=== PATIENT | female | born 1970 | race Caucasian/White ===

== ENCOUNTER 2017-02-25 09:05 | Emergency (ER) | payer BC ==
--- NOTE | 2017-02-25 09:59 | ED ---
Abdominal Pain/Female - HPI Summary HPI Summary: Patient presents to the ED 11 days s/p RY5 gastric bypass from [facility] (Dr. Cook) with a concern for constipation d/t no BM since the surgery. She was on liquids with bowel cleanse prior to the surgery. Has been on liquids x 7 days with introduction of small amounts of food x 4 days. She notes to 1 day history of abdominal pain 3 days ago, but denies any currently. Denies N/V. Denies recent illness. Denies fevers, sweats, chills, diaphoresis. She has been feeling otherwise well, she is only concerned with not having a BM. - History of Current Complaint Chief Complaint: EDAbdPain Stated Complaint: CONSITIPATION Time Seen by Provider: 02/25/17 09:30 Hx Obtained From: Patient Hx Last Menstrual Period: 04/28/14 ?: No Onset/Duration: Gradual Onset Timing: Constant Severity Initially: Mild Severity Currently: Mild Pain Intensity: 0 Pain Scale Used: 0-10 Numeric - Risk Factors Ectopic Risk Factor: Negative Ovarian Torsion Risk Factor: Negative Allergies/Adverse Reactions: Allergies Allergy/AdvReac Type Severity Reaction Status Date / Time No Known Allergies Allergy Verified 02/25/17 09:08 PMH/Surg Hx/FS Hx/Imm Hx Previously Healthy: Yes Cardiovascular History: Reports: Hx Hypertension Sensory History: Reports: Hx Contacts or Glasses Opthamlomology History: Reports: Hx Contacts or Glasses Psychiatric History: Denies: Hx of Violent Episodes Against Others - Immunization History Hx Pertussis Vaccination: No Immunizations Up to Date: Unable to Obtain/Confirm Infectious Disease History: No Infectious Disease History: Denies: Traveled Outside the [place] in Last 30 Days - Social History Occupation: Employed Full-time Lives: With Family Alcohol Use: Rare Hx Substance Use: No Substance Use Type: Reports: None Hx Tobacco Use: Yes Smoking Status (MU): Heavy Every Day Tobacco Smoker Type: Cigarettes Amount Used/How Often: 1 pack daily x 1 year Have You Smoked in the Last Year: Yes Review of Systems Constitutional: Negative Negative: Fever, Chills, Fatigue Eyes: Negative Cardiovascular: Negative Respiratory: Negative Positive: Other - constipation Genitourinary: Negative Positive: no symptoms reported, see HPI Musculoskeletal: Negative Skin: Negative Neurological: Negative All Other Systems Reviewed And Are Negative: Yes Physical Exam Triage Information Reviewed: Yes Vital Signs On Initial Exam: Initial Vitals Temp Pulse Resp BP Pulse Ox 97.2 F 107 20 154/117 98 02/25/17 09:08 02/25/17 09:08 02/25/17 09:08 02/25/17 09:08 02/25/17 09:08 Vital Signs Reviewed: Yes Appearance: Positive: Well-Appearing, Well-Nourished Skin: Positive: Warm, Skin Color Reflects Adequate Perfusion Head/Face: Positive: Normal Head/Face Inspection Eyes: Positive: EOMI, BRE, Conjunctiva Clear Neck: Positive: Supple, Nontender Respiratory/Lung Sounds: Positive: Clear to Auscultation, Breath Sounds Present Cardiovascular: Positive: RRR, Pulses are Symmetrical in both Upper and Lower Extremities Musculoskeletal: Positive: Strength/ROM Intact Neurological: Positive: Speech Normal Psychiatric: Positive: Normal, Affect/Mood Appropriate Diagnostics - Vital Signs Vital Signs Temp Pulse Resp BP Pulse Ox 02/25/17 09:08 97.2 F 107 20 154/117 98 - Laboratory Result Diagrams: 02/25/17 10:16 02/25/17 10:16 Lab Statement: Any lab studies that have been ordered have been reviewed, and results considered in the medical decision making process. Abdominal Pain Fem Course/Dx - Course Course Of Treatment: Patient evaluated for constipation. Abd xray shows no acute findings. Symptoms are consistent with normal bowel function after gastric bypass. She has been on clear liquids with recent introduction of solid foods to the diet 3 days ago. Labs obtained and WNL. Treatment options explained to patient. Patient understands the plan, voices no concerns at this time and understands the return precatuions given to them if they develop any worsening or changing symptoms. They are OK for discharge at this time. While BP was elevated on arrival, rechecked during stay and WNL. VS stable on discharge. Primary care follow up as agreed on discharge. She will follow up with her surgeon. - Diagnoses Provider Diagnoses: Constipation Discharge - Discharge Plan Condition: Stable Disposition: HOME Prescriptions: Cephalexin CAP* [Keflex CAP*] 500 mg PO QID #20 cap MDD 4 Patient Education Materials: Magnesium Hydroxide (By mouth), Constipation (ED) Referrals: Felicia Griffiths NP [Primary Care Provider] - Additional Instructions: Please call your doctor today or tomorrow for a follow up As discussed, nothing was found on the abdominal xray Please continue to drink water and take small amounts of the milk of magnesia. If you develop any abdominal pain, please return to the ED
[2017-02-25 10:31] LABS: ABS Basophils 0 10^3/ul (0-0.2); ABS Eosinophils 0.1 10^3/ul (0-0.6); ABS Lymphocytes 1.2 10^3/ul (1.0-4.8); ABS Monocytes 0.3 10^3/ul (0-0.8); ABS Neutrophils 3.9 10^3/ul (1.5-7.7); ABS Nucleated RBC 0 10^3/ul; Eosinophil % 2.6 % (0-6); Hematocrit 41 % (35-47); Hemoglobin 13.8 g/dl (12.0-16.0); Lymphocyte % 21.4 % (25-47); Mean Corpuscular HGB Conc 33 g/dl (31-36); Mean Corpuscular Hemoglobin 29 pg (27-31); Mean Corpuscular Volume 86 fL (80-97); Nucleated Red Blood Cells % 0.1; Red Cell Distribution Width 13 % (10.5-15); White Blood Count 5.6 10^3/ul (3.5-10.8)
--- NOTE | 2017-02-25 10:38 | RAD ---
INDICATION: Constipation. No bowel movement since gastric bypass February 14, 2017. COMPARISON: None TECHNIQUE: Supine and upright views of the abdomen were obtained. FINDINGS: The small bowel and colon appear nondistended. No free intraperitoneal air is seen. No grossly abnormal or pathologic appearing calcifications are noted. Visualized bones are within normal limits for the patient's age. IMPRESSION: Normal abdominal radiograph.
[2017-02-25 10:47] LABS: EGFR Non-African American 88.6 (>60)
[2017-02-25 10:54] VITALS: BP 150/95
[2017-02-25 11:03] LABS: Mean Platelet Volume 9 um3 (7.4-10.4); Platelet Count 265 10^3/ul (150-450)
[2017-02-25 11:34] LABS: Urine Appearance Cloudy; Urine Color Amber; Urine Ketones 2+ (Negative); Urine Urobilinogen Negative (Negative)
[2017-02-25 11:35] LABS: Urine Blood 2+ (Negative); Urine Protein 1+(30 mg/dL) (Negative)
== END 2017-02-25 11:20 | disposition home or self-care (01) ==
LOC: ED 09:05
DX: K59.00 Constipation, unspecified (principal); F17.210 Nicotine dependence, cigarettes, uncomplicated
CPT/HCPCS: 36415; 74020; 80053; 81003; 81015; 83605; 83690; 83735; 85025; 86140; 87086; 99282

== ENCOUNTER 2018-08-02 09:25 | Emergency (ER) | payer BC ==
[2018-08-02 09:54] VITALS: BP 109/73
--- NOTE | 2018-08-02 10:10 | UC ---
Throat Pain/Nasal Rajesh HPI - HPI Summary HPI Summary: 48-year-old female comes in with a chief complaint of sore throat. She's had some upper respiratory tract infection symptoms for the last 2 days. Overnight sore throat got worse she had some white spots on the back of her throat. Pain is worse when she swallows. She took some [id number] medicine which did help with the symptoms. No chills no fevers. No shortness of breath. No chest congestion. - History of Current Complaint Chief Complaint: UCGeneralIllness Stated Complaint: ST Time Seen by Provider: 08/02/18 10:04 Hx Last Menstrual Period: 04/28/14 Pain Intensity: 4 - Allergies/Home Medications Allergies/Adverse Reactions: Allergies Allergy/AdvReac Type Severity Reaction Status Date / Time amoxicillin Allergy Rash Verified 08/02/18 09:48 Home Medications: Home Medications Calcium Citrate TAB* [Citracal TAB*] 1,000 mg PO DAILY 08/02/18 [History Confirmed 08/02/18] Cholecalciferol TAB* [Vitamin D TAB*] 1,000 unit PO DAILY 08/02/18 [History Confirmed 08/02/18] Cyanocobalamin TAB* [Vitamin B12 TAB*] 1,000 mcg PO DAILY 08/02/18 [History Confirmed 08/02/18] DULoxetine DR CAP* [Cymbalta CAP*] 120 mg PO DAILY 08/02/18 [History Confirmed 08/02/18] Metoprolol Tartrate TAB* [Lopressor TAB*] 50 mg PO DAILY 08/02/18 [History Confirmed 08/02/18] Vitamin THERAPEUTIC TAB* [Theragran TAB*] 1 tab PO DAILY 08/02/18 [History Confirmed 08/02/18] PMH/Surg Hx/FS Hx/Imm Hx Previously Healthy: Yes Cardiovascular History: Hypertension - Surgical History Surgical History: Yes Surgery Procedure, Year, and Place: Gastric Bypass, 2017, [place] - Family History Known Family History: Positive: Non-Contributory - Social History Alcohol Use: Rare Substance Use Type: None Smoking Status (MU): Former Smoker Type: Cigarettes Amount Used/How Often: 1 pack daily x 1 year Length of Time of Smoking/Using Tobacco: ~1 PPD x 10 Years Have You Smoked in the Last Year: Yes When Did the Patient Quit Smoking/Using Tobacco: 2016 Review of Systems All Other Systems Reviewed And Are Negative: Yes Constitutional: Positive: Negative Skin: Positive: Negative Eyes: Positive: Negative ENT: Positive: Sore Throat, Sinus Congestion Respiratory: Positive: Negative Cardiovascular: Positive: Negative Gastrointestinal: Positive: Negative Motor: Positive: Negative Neurovascular: Positive: Negative Musculoskeletal: Positive: Negative Neurological: Positive: Negative Psychological: Positive: Negative Is Patient Immunocompromised?: No Physical Exam Triage Information Reviewed: Yes Appearance: No Pain Distress, Well-Nourished, Ill-Appearing - MILD Vital Signs: Initial Vital Signs Temp 98.1 F 08/02/18 09:47 Pulse 90 08/02/18 09:47 Resp 18 08/02/18 09:47 BP 109/73 08/02/18 09:47 Pulse Ox 99 08/02/18 09:47 Vital Signs Reviewed: Yes Eye Exam: Normal Eyes: Positive: Conjunctiva Clear ENT: Positive: Pharyngeal erythema, TMs normal Neck: Positive: Supple Respiratory: Positive: Lungs clear, Normal breath sounds, No respiratory distress Cardiovascular: Positive: RRR Musculoskeletal Exam: Normal Musculoskeletal: Positive: Strength Intact, ROM Intact Neurological Exam: Normal Neurological: Positive: Alert, Muscle Tone Normal Psychological Exam: Normal Psychological: Positive: Age Appropriate Behavior Skin Exam: Normal Throat Pain/Nasal Course/Dx - Course Course Of Treatment: DISCUSSED VIRAL VERSES BACTERIAL INFECTION AND THE ROLE OF ANTIBIOTICS. THE PATIENT PREFERS TO BE ON ANTIBIOTICS AT THIS TIME. - Differential Dx/Diagnosis Provider Diagnosis: Pharyngitis Discharge - Sign-Out/Discharge Documenting (check all that apply): Patient Departure All imaging exams completed and their final reports reviewed: No Studies - Discharge Plan Condition: Stable Disposition: HOME Prescriptions: Azithromyxin DARIA (NF) [Z-Daria (Zithromax) 250 mg tabs #6] 2 tab PO .TODAY, THEN 1 DAILY #6 tab Patient Education Materials: Pharyngitis (ED) Referrals: Felicia Griffiths NP [Primary Care Provider] - Additional Instructions: FOLLOW UP WITH YOUR DOCTOR IF NOT COMPLETELY IMPROVED. GET RECHECKED SOONER IF YOUR CONDITION WORSENS OR ANY QUESTIONS OR CONCERNS. - Billing Disposition and Condition Condition: STABLE Disposition: Home
== END 2018-08-02 10:16 | disposition home or self-care (01) ==
LOC: UCCORT 09:25
DX: J02.9 Acute pharyngitis, unspecified (principal); Z88.0 Allergy status to penicillin; I10 Essential (primary) hypertension; Z87.891 Personal history of nicotine dependence
CPT/HCPCS: 99212; G0463